=== PATIENT | male | born 1965 | race Caucasian/White ===

== ENCOUNTER 2023-04-04 14:02 | Emergency (ER) | payer MEDICARE ==
[~2023-04-04] VITALS: Ht 180.3 cm; Wt 81.6 kg
[2023-04-04] MEDS ORDERED: ACETAMINOPHEN 500 MG TABLET PO ONE (14:30)
[2023-04-04 14:57] LABS: BASOPHILS % (AUTO) 0.7 % (0.0-5.0); EOSINOPHILS % (AUTO) 1.1 % (0.0-8.0); HEMATOCRIT 42.6 % (42-54); LYMPHOCYTES % (AUTO) 20.6 % (21.0-51.0); MEAN CORPUSCULAR HEMOGLOBIN 30.5 pg (27.0-33.0); MEAN CORPUSCULAR HGB CONC 33.1 g/dL (32.0-36.0); MEAN CORPUSCULAR VOLUME 92.2 fL (79-99); MONOCYTES % (AUTO) 7.4 % (3.0-13.0); NEUTROPHILS % (AUTO) 69.8 % (40.0-77.0); PLATELET COUNT (AUTO) 308 K/uL (130-400); RED BLOOD CELL COUNT(AUTO) 4.62 MIL/uL (4.50-6.20); RED CELL DISTRIBUTION WIDTH 11.9 % (11.0-15.5); WHITE BLOOD COUNT (AUTO) 10.4 K/uL (4.8-10.8)
[2023-04-04 15:09] LABS: CREATININE 1.1 mg/dL (0.5-1.5)
[2023-04-04 15:18] LABS: ALBUMIN 3.7 g/dL (3.5-5.0); TOTAL PROTEIN, SERUM 6.7 g/dL (6.0-8.3)
[2023-04-04 15:40] LABS: APPEARANCE,URINE CLOUDY (CLEAR); BILIRUBIN,URINE NEGATIVE (NEGATIVE); COLOR,URINE LIGHT-YELLOW (YELLOW); GLUCOSE, URINE (UA) NEGATIVE (NEGATIVE); KETONES,URINE NEGATIVE (NEGATIVE); LEUKOCYTE ESTERASE ,URINE NEGATIVE Leu/uL (NEGATIVE); NITRATE,URINE NEGATIVE (NEGATIVE); OCCULT BLOOD,URINE NEGATIVE (NEGATIVE); PH,URINE 7.5 (5.0-8.0); PROTEIN,URINE NEGATIVE (NEGATIVE); UROBILINOGEN,URINE 0.2 mg/dL (0.2-1.0)
[2023-04-04 15:43] LABS: BACTERIA,URINE FEW /HPF (None Seen); MUCUS,URINE RARE LPF (None Seen); OTHER CASTS, URINE 6 /LPF (None Seen); YEAST,URINE BUDDING MOD /HPF (None Seen)
[2023-04-04 15:47] LABS: AMPHET/METH SCREEN,URINE NEGATIVE (NEGATIVE); BARBITURATE SCREEN, URINE NEGATIVE (NEGATIVE); BENZODIAZEPINES SCREEN,URINE NEGATIVE (NEGATIVE); CANNABINOID SCREEN,URINE NEGATIVE (NEGATIVE); COCAINE SCREEN,URINE POSITIVE (NEGATIVE); OPIATE SCREEN,URINE NEGATIVE (NEGATIVE); PHENCYCLIDINE SCREEN,URINE NEGATIVE (NEGATIVE)
[2023-04-04] MEDS ORDERED: IOHEXOL-350 75 ML VIAL IV ONE (15:51)
[2023-04-04] MEDS ORDERED: ONDANSETRON 4MG INJ IVP ONE (16:00)
[2023-04-04] MEDS ORDERED: MORPHINE 4 MG SYG IM ONE (16:00)
[2023-04-04 18:05] VITALS: BP 140/68
== END 2023-04-04 18:19 | disposition home or self-care (01) ==
LOC: EDH 14:02
DX: R07.89 Other chest pain (principal); M94.0 Chondrocostal junction syndrome [Tietze]; R79.89 Other specified abnormal findings of blood chemistry; F14.90 Cocaine use, unspecified, uncomplicated; J44.9 Chronic obstructive pulmonary disease, unspecified; Z90.49 Acquired absence of other specified parts of digestive tract; F31.9 Bipolar disorder, unspecified
CPT/HCPCS: 99285; 71270; 96374; 71045; 84484 ×2; 80053; 80305; 85025; 85378; 81001; 36415; 74176; 96372; 93005 ×2; J2405; J2270; Q9967

== ENCOUNTER 2023-08-08 11:47 | Emergency (ER) | payer MEDICARE ==
[~2023-08-08] VITALS: Ht 180.3 cm; Wt 83.9 kg
[2023-08-08] MEDS ORDERED: KETOROLAC 60 MG VIAL (30MG/ML) IM ONE (15:30)
[2023-08-08] MEDS ORDERED: PREDNISONE 20 MG TABLET PO ONE (15:30)
[2023-08-08] MEDS ORDERED: DIAZEPAM 5 MG TABLET PO ONE (15:30)
[2023-08-08] MEDS ORDERED: TIZANIDINE HCL 2 MG TABLET PO SCH (15:30)
[2023-08-08] MEDS ORDERED: IBUP-2070 PO (16:30)
[2023-08-08] MEDS ORDERED: METH-811 PO (16:30)
[2023-08-08 16:44] VITALS: BP 121/76; PULSE 85; RESP 16; O2SAT 96
== END 2023-08-08 16:55 | disposition home or self-care (01) ==
LOC: EDH 11:47
DX: M54.50 Low back pain, unspecified (principal); G89.29 Other chronic pain; J44.9 Chronic obstructive pulmonary disease, unspecified; F41.9 Anxiety disorder, unspecified; F17.200 Nicotine dependence, unspecified, uncomplicated; Z79.52 Long term (current) use of systemic steroids; Z90.49 Acquired absence of other specified parts of digestive tract
CPT/HCPCS: 99284; 96372; J1885

== ENCOUNTER → 2025-02-23 | Outpatient (CLI) | payer OTHER, MEDICARE ==
[~2025-02-23] MED LIST: IBUP-2070 PO; METH-811 PO
--- NOTE | 2025-02-23 15:17 | HMCIMG ---
ABD 1VW HISTORY: Abdominal pain COMPARISON: None FINDINGS: A frontal projection of the abdomen was obtained. A nonspecific bowel gas pattern is seen. Fecal material is seen in the colon. Degenerative changes of the thoracolumbar spine are noted. IMPRESSION: 1. A nonspecific bowel gas pattern is seen.
== END | disposition home or self-care (01) ==
LOC: RAH 08:05
PROVIDERS: ATTEND Internal Medicine
DX: R10.84 Generalized abdominal pain (principal); M47.815 Spondylosis without myelopathy or radiculopathy, thoracolumbar region
CPT/HCPCS: 74018

== ENCOUNTER → 2025-06-16 | Outpatient (CLI) | payer OTHER, MEDICAID ==
--- NOTE | 2025-06-16 16:18 | HMCIMG ---
EXAM: CT Maxillofacial without Intravenous Contrast. CLINICAL HISTORY: 59-year-old male with chronic sinusitis. TECHNIQUE: Axial computed tomography images of the face without intravenous contrast. Sagittal and coronal reformations performed. Dose reduction technique was used including one or more of the following: automated exposure control, adjustment of mA and kV according to patient size, and/or iterative reconstruction. CONTRAST: None. COMPARISON: None provided. FINDINGS: BONES: There is an old right inferior orbital wall fracture. No acute fracture or focal osseous lesion. The mandible is intact. SOFT TISSUES: The soft tissues are unremarkable. SINUSES: There is a moderate-sized left maxillary sinus retention cyst. ORBITS: The orbits are normal. No retrobulbar hematoma or mass. CERVICAL SPINE: There are moderate degenerative changes in the upper cervical spine. IMPRESSION: 1. Old right inferior orbital wall fracture. 2. Moderate-sized left maxillary sinus retention cyst. /[place]
== END | disposition home or self-care (01) ==
LOC: RAH 12:46
PROVIDERS: ATTEND Otolaryngology
DX: J34.1 Cyst and mucocele of nose and nasal sinus (principal); J32.8 Other chronic sinusitis; J34.2 Deviated nasal septum; J34.3 Hypertrophy of nasal turbinates; M47.812 Spondylosis without myelopathy or radiculopathy, cervical region; Z87.81 Personal history of (healed) traumatic fracture
CPT/HCPCS: 70486

== ENCOUNTER → 2025-06-28 | Outpatient (CLI) | payer OTHER, MEDICAID ==
[~2025-06-28] MED LIST changes: +IOHEXOL-350 75 ML VIAL IV ONE
--- NOTE | 2025-06-28 12:35 | HMCIMG ---
EXAM: CT Abdomen and Pelvis with Intravenous Contrast CLINICAL HISTORY: 59-year-old male with right upper quadrant pain TECHNIQUE: Axial computed tomography images of the abdomen and pelvis with intravenous contrast. Dose reduction technique was used including one or more of the following: automated exposure control, adjustment of mA and kV according to patient size, and/or iterative reconstruction. CONTRAST: Omnipaque 350, 75 mL COMPARISON: CT ABD/PEL dated 04/04/2023, 14:34 pmFINDINGS: LUNG BASES: No basilar airspace consolidation or pleural effusion. LIVER: Unremarkable. GALLBLADDER AND BILE DUCTS: Unremarkable. No calcified stone. No ductal dilation. PANCREAS: Unremarkable. SPLEEN: Unremarkable. ADRENAL GLANDS: Unremarkable. KIDNEYS, URETERS, AND BLADDER: Small left renal cyst. Per consensus, no follow-up is needed for simple Bosniak type 1 and 2 renal cysts, unless the patient has a malignancy history or risk factors. Symmetric excretion of contrast in both kidneys. No hydronephrosis or nephrolithiasis. No ureteral or bladder calculi. STOMACH AND BOWEL: No obstruction. No wall thickening. No CT evidence of colitis or acute diverticulitis. APPENDIX: No CT evidence for appendicitis. PERITONEUM: No free fluid. No free air. LYMPH NODES: No lymphadenopathy. REPRODUCTIVE: Unremarkable as visualized. VASCULATURE: No aortic aneurysm. ABDOMINAL WALL AND SOFT TISSUES: Unremarkable. BONES: No fracture or suspicious osseous abnormality. IMPRESSION: 1. No acute findings. 2. Small left renal cyst seen, follow up with renal ultrasound. 3. Chronic findings similar to prior CT ABD/PEL dated 04/04/2023, 14:34 pm /[place]
== END | disposition home or self-care (01) ==
LOC: RAH 09:15
PROVIDERS: ATTEND Internal Medicine Gastroenterology
DX: N28.1 Cyst of kidney, acquired (principal); R10.11 Right upper quadrant pain; R22.2 Localized swelling, mass and lump, trunk
CPT/HCPCS: 74178; Q9967